=== PATIENT | female | born 1960 | race Caucasian/White ===

== ENCOUNTER 2023-07-15 11:38 | Inpatient (IN) | payer OTHER ==
[2023-07-15] MEDS ORDERED: Ondansetron 4 MG/2 ML SDV IVPUSH ONE (12:17)
[2023-07-15] MEDS ORDERED: Sodium Chloride 0.9% 2.5 ML Syringe FLUSH PRN (12:17)
[2023-07-15] MEDS ORDERED: Sodium Chloride 0.9% 10 ML Syringe FLUSH PRN (12:17)
[2023-07-15] MEDS ORDERED: Sodium Chloride 0.9% 1,000 ML IV ONE ×3 (12:17→12:18)
[2023-07-15 12:48] LABS: HEMATOCRIT 32.4 % (37.0-47.0); HEMOGLOBIN 11.5 g/dL (12.0-16.0); MEAN CORPUSCULAR HEMOGLOBIN 28.6 pg (28.0-32.0); MEAN CORPUSCULAR HGB CONC 35.5 g/dL (32.0-36.0); MEAN CORPUSCULAR VOLUME 80.6 fL (83.0-99.0); MEAN PLATELET VOLUME 9.8 fL (9.4-12.3); NRBC ABSOLUTE 0.04 K/uL (0.00-0.02); NRBC PERCENT 0.9 /100WBC (0.0-0.2); PLATELET COUNT,PLT 257 K/uL (150-400); RED BLOOD CELL COUNT 4.02 M/uL (4.10-5.30); WHITE BLOOD CELL COUNT,WBC 4.46 K/uL (3.9-11.3)
[2023-07-15 13:07] LABS: A/G RATIO 0.6 (0.9-1.6); BILIRUBIN TOTAL 0.5 mg/dL (0.2-1.0); CALCIUM 9.3 mg/dL (8.5-10.1); CARBON DIOXIDE,CO2 28.8 mmol/L (21.0-32.0); EST CRCL DRUG DOSING (CG) 12.95 mL/min; POTASSIUM,K 2.6 mmol/L (3.5-5.1); PROTEIN TOTAL,TP 7.7 g/dL (6.4-8.2)
[2023-07-15 13:09] LABS: LACTIC ACID 1.2 mmol/L (0.4-2.0)
[2023-07-15 13:31] LABS: BASOPHILS ABSOLUTE MAN 0.4 (0.0-0.1); BASOPHILS PERCENT MAN 10 % (0.0-1.5); LYMPHOCYTES ABSOLUTE MAN 0.9 (0.6-2.4); LYMPHOCYTES PERCENT MAN 20 % (16.0-40.0); METAMYELOCYTE ABSOLUTE MAN 0.2; METAMYELOCYTE PERCENT MAN 5 %; MONOCYTES ABSOLUTE MAN 1.2 (0.0-0.8); MONOCYTES PERCENT MAN 27 % (0.0-15.0); MYELOCYTE ABSOLUTE MAN 0; MYELOCYTE PERCENT MAN 1 %; SEG NEUTROPHILS ABSOLUTE MAN 1.7 (1.4-5.7); SEG NEUTROPHILS PERCENT MAN 37 % (48.0-80.0)
[2023-07-15] MEDS ORDERED: NS with KCl 40mEq 1,000 ML IV SCH (14:00)
[2023-07-15 16:01] LABS: APPEARANCE,URINE SLT CLOUDY; COLOR,URINE YELLOW; GLUCOSE,URINE NEGATIVE (NEGATIVE); KETONES,URINE NEGATIVE (NEGATIVE); LEUKOCYTE ESTERASE,URINE TRACE (NEGATIVE); NITRITE,URINE NEGATIVE (NEGATIVE); OCCULT BLOOD,URINE TRACE-INTACT (NEGATIVE); PH,URINE 5.5 (5.0-8.0); PROTEIN,URINE TRACE mg/dL (NEGATIVE); UROBILINOGEN,URINE 0.2 EU/dL (<2.0)
[2023-07-15 16:02] LABS: BILIRUBIN,URINE SMALL (NEGATIVE)
[2023-07-15 16:08] LABS: SQUAMOUS EPITHELIAL CELLS,UR MODERATE
[2023-07-15 16:09] LABS: BACTERIA,URINE FEW (NEGATIVE); MUCUS,URINE MODERATE (NONE-MOD)
[2023-07-15 16:09] LABS: CALCIUM 7.4 mg/dL (8.5-10.1); CARBON DIOXIDE,CO2 26.9 mmol/L (21.0-32.0); CREATININE 3.2 mg/dL (0.6-1.0); EST CRCL DRUG DOSING (CG) 16.19 mL/min; POTASSIUM,K 3.4 mmol/L (3.5-5.1)
[2023-07-15] MEDS ORDERED: Magnesium Sulfate/Water 2 GM in Premix Bag 1 BAG IV ONE (16:36)
[2023-07-15 18:23] LABS: CORONAVIRUS COVID-19 NAA NEGATIVE (NEGATIVE); INFLUENZA A NAA NEGATIVE (NEGATIVE); INFLUENZA B NAA NEGATIVE (NEGATIVE)
[2023-07-15] MEDS ORDERED: Ondansetron 4 MG/2 ML SDV IVPUSH PRN (19:20)
[2023-07-15] MEDS ORDERED: Glucagon,Human Recombinant 1 MG Vial IM PRN (19:22)
[2023-07-15] MEDS ORDERED: 50% Dextrose in Water 50 ML Syringe IVPUSH PRN (19:22)
[2023-07-15] MEDS: Sodium Chloride 0.9% 1,000 ML IV SCH (21:59)
[2023-07-16] MEDS: Sodium Chloride 0.9% 1,000 ML IV SCH ×3 (06:10→22:09)
[2023-07-16 06:26] LABS: HEMATOCRIT 27.7 % (37.0-47.0); HEMOGLOBIN 9.8 g/dL (12.0-16.0); MEAN CORPUSCULAR HEMOGLOBIN 29.2 pg (28.0-32.0); MEAN CORPUSCULAR HGB CONC 35.4 g/dL (32.0-36.0); MEAN CORPUSCULAR VOLUME 82.4 fL (83.0-99.0); MEAN PLATELET VOLUME 9.4 fL (9.4-12.3); PLATELET COUNT,PLT 208 K/uL (150-400); RED BLOOD CELL COUNT 3.36 M/uL (4.10-5.30); WHITE BLOOD CELL COUNT,WBC 4.61 K/uL (3.9-11.3)
[2023-07-16 06:51] LABS: CALCIUM 8.3 mg/dL (8.5-10.1); CARBON DIOXIDE,CO2 25.4 mmol/L (21.0-32.0); CREATININE 1.8 mg/dL (0.6-1.0); EST CRCL DRUG DOSING (CG) 28.79 mL/min; POTASSIUM,K 3.5 mmol/L (3.5-5.1)
[2023-07-16 07:38] LABS: LYMPHOCYTES PERCENT MAN 21 % (16.0-40.0); MONOCYTES ABSOLUTE MAN 0.7 (0.0-0.8); MONOCYTES PERCENT MAN 15 % (0.0-15.0); SEG NEUTROPHILS ABSOLUTE MAN 2.9 (1.4-5.7); SEG NEUTROPHILS PERCENT MAN 63 % (48.0-80.0)
[2023-07-16 07:39] LABS: BASOPHILS PERCENT MAN 1 % (0.0-1.5)
[2023-07-16] MEDS: Insulin Aspart 100 Units/ML 3 ML Pen SUBCUT SCH ×3 (09:14→16:45)
[2023-07-16] MEDS: Atropine/Diphenoxylate 0.025-2.5 MG Tab PO PRN ×3 (10:24→23:02)
[2023-07-16] MEDS ORDERED: Loperamide 2 MG Cap PO PRN (16:08)
[2023-07-16] MEDS: Octreotide 100 MCG/1 ML Amp SUBCUT SCH (16:49)
[2023-07-17] MEDS: Octreotide 100 MCG/1 ML Amp SUBCUT SCH ×2 (00:15→08:52)
[2023-07-17] MEDS: Insulin Aspart 100 Units/ML 3 ML Pen SUBCUT SCH ×2 (06:49→11:28)
[2023-07-17 06:54] LABS: HEMATOCRIT 32.6 % (37.0-47.0); HEMOGLOBIN 11.3 g/dL (12.0-16.0); MEAN CORPUSCULAR HEMOGLOBIN 28.8 pg (28.0-32.0); MEAN CORPUSCULAR HGB CONC 34.7 g/dL (32.0-36.0); MEAN CORPUSCULAR VOLUME 83.2 fL (83.0-99.0); MEAN PLATELET VOLUME 10.3 fL (9.4-12.3); RED BLOOD CELL COUNT 3.92 M/uL (4.10-5.30); WHITE BLOOD CELL COUNT,WBC 4.19 K/uL (3.9-11.3)
[2023-07-17] MEDS: Sodium Chloride 0.9% 1,000 ML IV SCH (07:00)
[2023-07-17 07:16] LABS: CALCIUM 7.9 mg/dL (8.5-10.1); CARBON DIOXIDE,CO2 23.9 mmol/L (21.0-32.0); EST CRCL DRUG DOSING (CG) 51.81 mL/min; POTASSIUM,K 3.5 mmol/L (3.5-5.1)
[2023-07-17 08:06] LABS: PLATELET COUNT,PLT 151 K/uL (150-400)
[2023-07-17 08:10] LABS: BAND ABSOLUTE MAN 0.3; BAND PERCENT MAN 7 %; SEG NEUTROPHILS ABSOLUTE MAN 2.3 (1.4-5.7); SEG NEUTROPHILS PERCENT MAN 54 % (48.0-80.0)
[2023-07-17 08:11] LABS: LYMPHOCYTES ABSOLUTE MAN 0.9 (0.6-2.4); LYMPHOCYTES PERCENT MAN 22 % (16.0-40.0); METAMYELOCYTE ABSOLUTE MAN 0.2; METAMYELOCYTE PERCENT MAN 4 %; MONOCYTES ABSOLUTE MAN 0.3 (0.0-0.8); MONOCYTES PERCENT MAN 8 % (0.0-15.0); MYELOCYTE ABSOLUTE MAN 0.2; MYELOCYTE PERCENT MAN 5 %; PLATELET COUNT ESTIMATE ADEQUATE; TOXIC GRANULATION 1+ SLIGHT
[2023-07-17 08:12] LABS: PLATELET CLUMPS MODERATE
[2023-07-17] MEDS: Atropine/Diphenoxylate 0.025-2.5 MG Tab PO PRN (08:20)
[2023-07-17 11:37] VITALS: BP 142/73; PULSE 67
== END 2023-07-17 13:15 | disposition home or self-care (01) | DRG 683 ==
LOC: MW.ED 11:38 → MW.MS 16:47
PROVIDERS: ADMIT Internal Medicine; ATTEND Internal Medicine
DX: N17.9 Acute kidney failure, unspecified (principal); K52.1 Toxic gastroenteritis and colitis; E11.9 Type 2 diabetes mellitus without complications; E86.0 Dehydration; K21.9 Gastro-esophageal reflux disease without esophagitis; I10 Essential (primary) hypertension; E87.6 Hypokalemia; E83.42 Hypomagnesemia; E78.00 Pure hypercholesterolemia, unspecified; C50.911 Malignant neoplasm of unspecified site of right female breast; E66.9 Obesity, unspecified; Z92.21 Personal history of antineoplastic chemotherapy; Z79.4 Long term (current) use of insulin; Z79.899 Other long term (current) drug therapy; Z68.33 Body mass index [BMI] 33.0-33.9, adult; Z97.3 Presence of spectacles and contact lenses; Z87.442 Personal history of urinary calculi; Z90.89 Acquired absence of other organs; Z11.52 Encounter for screening for COVID-19; Z90.710 Acquired absence of both cervix and uterus; T45.1X5A Adverse effect of antineoplastic and immunosuppressive drugs, initial encounter; Y92.89 Other specified places as the place of occurrence of the external cause
CPT/HCPCS: 0240U; 36415; 80048; 80053; 81001; 82947; 83605; 83735; 85025; 87040; 87086; 93005; 93010; 96361; 96365; 96366; 96375; 99285; 99285-25; A9270-GY; J1642; J1815-GY; J2354-JB-GY; J2405; J3475; J3480; J3490; J7030

== ENCOUNTER 2025-07-23 06:28 | Day surgery (SDC) | payer MEDICARE, BC ==
[~2025-07-23 06:28] MED LIST: Sodium Chloride 0.9% 10 ML Syringe FLUSH PRN; Sodium Chloride 0.9% 2.5 ML Syringe FLUSH PRN; ceFAZolin 2 GM in Water For Injection, Sterile 20 ML IVPUSH ONE
[2025-07-23] MEDS: Lactated Ringers 1,000 ML IV SCH (07:00)
[2025-07-23] MEDS ORDERED: Ketamine HCL/NACL, ISO-OSM 50 MG/5 ML Syringe ONE (07:31)
[2025-07-23] MEDS ORDERED: fentaNYL 100 MCG/2 ML SDV ONE (07:31)
[2025-07-23] MEDS ORDERED: Propofol 200 MG/20 ML SDV ONE (07:31)
[2025-07-23] MEDS ORDERED: Ondansetron 4 MG/2 ML SDV ONE (08:28)
[2025-07-23] MEDS ORDERED: Naloxone 0.4 MG/ML SDV IVPUSH PRN (09:10)
[2025-07-23] MEDS ORDERED: fentaNYL 50 MCG/ML SDV IVPUSH PRN (09:10)
[2025-07-23] MEDS ORDERED: Ondansetron 4 MG/2 ML SDV IVPUSH PRN (09:10)
[2025-07-23] MEDS ORDERED: Albuterol 0.083% 2.5 MG/3 ML Neb Soln NEB PRN (09:10)
[2025-07-23 10:11] VITALS: BP 118/60; PULSE 69
== END 2025-07-23 09:40 | disposition home or self-care (01) ==
LOC: MW.SDS 06:28
PROVIDERS: ATTEND Surgery
DX: Z45.2 Encounter for adjustment and management of vascular access device (principal); I10 Essential (primary) hypertension; C50.919 Malignant neoplasm of unspecified site of unspecified female breast; E78.00 Pure hypercholesterolemia, unspecified; E11.9 Type 2 diabetes mellitus without complications; K21.9 Gastro-esophageal reflux disease without esophagitis; Z79.899 Other long term (current) drug therapy
CPT/HCPCS: 00400; 36590; J0665; J0690; J2003; J2371; J2405; J2704; J3010; J3490; J7120